=== PATIENT | male | born 1990 | race Caucasian/White ===

== ENCOUNTER 2017-06-18 20:01 | Emergency (ER) | payer BC, MEDICAID ==
[2017-06-18] MEDS ORDERED: Ketorolac 30 MG/ML SDV IM ONE (20:35)
[2017-06-18] MEDS ORDERED: HYDROmorphone 2 MG/ML SDV IM ONE (20:37)
[2017-06-18] MEDS ORDERED: Acetaminophen/Codeine 300-30 MG Tab PO ONE (21:29)
[2017-06-18] MEDS ORDERED: Cyclobenzaprine 10 MG Tab PO ONE (21:29)
--- NOTE | 2017-06-18 21:43 | EDM.PDOC ---
ED HPI GENERAL MEDICAL PROBLEM - General Chief Complaint: Back Pain or Injury Stated Complaint: BACK PAIN Time Seen by Provider: 06/18/17 20:05 Source of Information: Reports: Patient History Limitations: Reports: No Limitations - History of Present Illness INITIAL COMMENTS - FREE TEXT/NARRATIVE: Developed right lower back pain after lifting a couch with a friend. No twisting movements. Injured back within last year but no residual sequlae. Onset: Today Onset Date: 06/18/17 Onset Time: 19:00 Duration: Hour(s): Location: Reports: Back Quality: Reports: Sharp Severity: Moderate Improves with: Reports: Rest Worsens with: Reports: Movement Associated Symptoms: Reports: No Other Symptoms lower back radiating to the Rt leg Pain Score (Numeric/FACES): 9 - Related Data Allergies Allergy/AdvReac Type Severity Reaction Status Date / Time No Known Allergies Allergy Verified 06/18/17 20:11 Home Meds: Home Meds NK [No Known Home Meds] 06/18/17 [History] Past Medical History Other Cardiovascular History: increased heart rate Musculoskeletal History: Reports: Back Pain, Chronic Psychiatric History: Reports: Anxiety, Depression Social & Family History - Family History Family Medical History: Unobtainable - Tobacco Use Smoking Status *Q: Current Every Day Smoker Years of Tobacco use: 7 Packs/Tins Daily: 0.5 - Caffeine Use Caffeine Use: Reports: Coffee, Energy Drinks - Recreational Drug Use Recreational Drug Type: Reports: Marijuana/Hashish Recreational Drug Use Frequency: Not Used In Over 1 Year ED ROS GENERAL - Review of Systems Review Of Systems: ROS reveals no pertinent complaints other than HPI. ED EXAM,LOWER BACK PAIN/INJURY - Physical Exam Exam: See Below Exam Limited By: No Limitations General Appearance: No Apparent Distress Respiratory/Chest: No Respiratory Distress, Lungs Clear Cardiovascular: Normal Peripheral Pulses, Regular Rate, Rhythm, No Edema GI/Abdominal: Normal Bowel Sounds Extremities: Normal Inspection, Normal Range of Motion, Non-Tender (No point tenderness. No saddle anesthesia.) Neurological: Alert, Normal Mood/Affect Skin Exam: Warm, Dry Course - Vital Signs Last Recorded V/S: Last Vital Signs Temp 36.8 C 06/18/17 21:40 Pulse 78 06/18/17 21:40 Resp 17 06/18/17 21:40 BP 118/60 06/18/17 21:40 Pulse Ox 99 06/18/17 21:40 - Orders/Labs/Meds Meds: Medications Discontinued Medications Generic Name Dose Route Start Last Admin Trade Name Abdon PRN Reason Stop Dose Admin Hydromorphone HCl 1 mg 06/18/17 20:37 06/18/17 20:44 Dilaudid IM 06/18/17 20:38 1 mg ONETIME ONE Administration Ketorolac Tromethamine 30 mg 06/18/17 20:35 06/18/17 20:48 Toradol IM 06/18/17 20:36 30 mg ONETIME ONE Administration Departure - Departure Time of Disposition: 20:00 Disposition: Home, Self-Care 01 Condition: Good Clinical Impression: Low back strain Qualifiers: Encounter type: initial encounter Qualified Code(s): S39.012A - Strain of muscle, fascia and tendon of lower back, initial encounter - Discharge Information Instructions: Back Exercises, Back Pain, Adult, [id number] Referrals: PCP,None [Primary Care Provider] - Forms: ED Department Discharge Care Plan Goals: Alternating ice and heat to low back. Continue with normal movements and stretching exercises but avoid heavy lifting, pushing, or pulling. Follow up with primary provider on Wednesday. Take tylenol#3 and flexeril as directed.
== END 2017-06-18 21:40 | disposition home or self-care (01) ==
LOC: FB.ED 20:01
DX: S39.012A Strain of muscle, fascia and tendon of lower back, initial encounter (principal); F17.210 Nicotine dependence, cigarettes, uncomplicated; X50.0XXA Overexertion from strenuous movement or load, initial encounter
CPT/HCPCS: 96372; 99283; J1170; J1885; A9270-GY

== ENCOUNTER 2017-09-24 05:53 | Emergency (ER) | payer BC, MEDICAID ==
[2017-09-24] MEDS ORDERED: Acetaminophen/Codeine 300-30 MG Tab PO ONE (06:28)
--- NOTE | 2017-09-24 09:11 | ER ---
DATE SEEN: 09/24/2017 TIME SEEN: I saw him at 0630 hours, in the morning. CHIEF COMPLAINT: Tooth pain. HISTORY OF PRESENT ILLNESS: This is a 27-year-old male with tooth pain for about 3 to 4 days. The pain is severe to the point that he is unable to sleep, eat or drink, in the upper incisor. REVIEW OF SYSTEMS: Negative for any fever, sore throat, or headaches. ALLERGIES: Penicillin causes anaphylaxis. PHYSICAL EXAMINATION: GENERAL: He is not in distress. VITAL SIGNS: His blood pressure is normal. He is afebrile. HEENT: Oral exam confirmed a cavity in the right upper incisor. IMPRESSION: Dental caries and dental pain. PLAN: 1. Clindamycin 300 mg p.o. t.i.d. 2. Tylenol No.3 one tablet every 6 hours p.r.n. for pain. 3. I advised him to make an appointment with a dentist as soon as practical to discuss further treatment. /[id number] THERESA/NASH
== END 2017-09-24 07:31 | disposition home or self-care (01) ==
LOC: FB.ED 05:53
DX: K02.9 Dental caries, unspecified (principal); Z88.0 Allergy status to penicillin
CPT/HCPCS: 99282; A9270

== ENCOUNTER 2018-02-05 13:37 | Emergency (ER) | payer BC, MEDICAID ==
[2018-02-05] MEDS ORDERED: Cyclobenzaprine 10 MG Tab PO ONE (14:14)
[2018-02-05] MEDS ORDERED: Ketorolac 60 MG/2 ML SDV IM ONE (14:14)
--- NOTE | 2018-02-05 14:21 | EDM.PDOC ---
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 Pain is localized to the R lower back at the L4-5 level, with some radiation into the posterior R leg, but not below the knee. There is moderated spasm with efforts at movement. There is no numbness or weakness in the RLE. He has tried no meds. He had a WC injury earlier this year with similar sxs. Lower back pain Pain Score (Numeric/FACES): 6 - Related Data Allergies Allergy/AdvReac Type Severity Reaction Status Date / Time Penicillins Allergy Other Verified 02/05/18 13:49 Home Meds: Home Meds Cyclobenzaprine [Flexeril] 10 mg PO TID PRN #20 tab 02/05/18 [Rx] Past Medical History Other Cardiovascular History: increased heart rate Musculoskeletal History: Reports: Back Pain, Chronic, Other (See Below) Other Musculoskeletal History: States several fractures: Fingers, Wrist, Elbow , Shoulder, Collar Bone, Knee, Ankle. Hx back problems from work injury 2017. Neurological History: Reports: Migraines Psychiatric History: Reports: Anxiety, Depression, Suicide Attempt Endocrine/Metabolic History: Reports: Obesity/BMI 30+ - Infectious Disease History Infectious Disease History: Reports: Chicken Pox - Past Surgical History HEENT Surgical History: Reports: Myringotomy w Tube(s) Social & Family History - Family History Family Medical History: Noncontributory - Tobacco Use Smoking Status *Q: Current Every Day Smoker Years of Tobacco use: 14 Packs/Tins Daily: 1.5 - Caffeine Use Caffeine Use: Reports: Coffee, Energy Drinks, Tea - Alcohol Use Days Per Week of Alcohol Use: 3 Number of Drinks Per Day: 6 Total Drinks Per Week: 18 - Recreational Drug Use Recreational Drug Use: Yes Drug Use in Last 12 Months: No Recreational Drug Type: Reports: Cocaine, Marijuana/Hashish ED ROS GENERAL - Review of Systems Review Of Systems: ROS reveals no pertinent complaints other than HPI. ED EXAM,LOWER BACK PAIN/INJURY - Physical Exam Exam: See Below Exam Limited By: No Limitations General Appearance: Alert, WD/WN, Anxious, Mild Distress Head: Normocephalic Neck: Normal Inspection, Supple, Non-Tender, Full Range of Motion Respiratory/Chest: Lungs Clear, Normal Breath Sounds Cardiovascular: Regular Rate, Rhythm, No Murmur GI/Abdominal: Normal Bowel Sounds, Soft, Non-Tender, No Organomegaly, No Distention, No Mass (Male) Exam: No Hernia Rectal (Males) Exam: Deferred Back Exam: Decreased Range of Motion (SFB 15 deg, lat and rotarty bend are sxs limited; SSLR is full, ) Extremities: Normal Inspection, Non-Tender, No Pedal Edema Neurological: Alert, Normal Dorsiflexion, CN II-XII Intact, Normal Plantar Flexion, Normal Reflexes, No Motor/Sensory Deficits, Oriented x 3 Psychiatric: Normal Affect, Anxious Skin Exam: Warm, Dry, Intact Lymphatic: No Adenopathy Course - Vital Signs Text/Narrative:: Following assessment at the [facility] ED, I administered Toradol 60 mg IM and Flexeril 10 mg po for sxs relief. Patient tolerated well. Last Recorded V/S: Last Vital Signs Temp 36.7 C 02/05/18 13:45 Pulse 82 02/05/18 13:45 Resp 18 02/05/18 13:45 BP 136/78 02/05/18 13:45 Pulse Ox 99 02/05/18 13:45 - Orders/Labs/Meds Meds: Medications Discontinued Medications Generic Name Dose Route Start Last Admin Trade Name Freq PRN Reason Stop Dose Admin Cyclobenzaprine HCl 10 mg 02/05/18 14:14 Flexeril PO 02/05/18 14:15 ONETIME ONE Ketorolac Tromethamine 60 mg 02/05/18 14:14 Toradol IM 02/05/18 14:15 ONETIME ONE Departure - Departure Time of Disposition: 14:30 Disposition: Home, Self-Care 01 Condition: Fair Clinical Impression: Low back strain Qualifiers: Encounter type: initial encounter Qualified Code(s): S39.012A - Strain of muscle, fascia and tendon of lower back, initial encounter - Discharge Information *PRESCRIPTION DRUG MONITORING PROGRAM REVIEWED*: Not Applicable *COPY OF PRESCRIPTION DRUG MONITORING REPORT IN PATIENT RADHA: Not Applicable Prescriptions: Cyclobenzaprine [Flexeril] 10 mg PO TID PRN #20 tab PRN Reason: Breakthrough Pain Referrals: PCP,None [Primary Care Provider] - - Problem List & Annotations (1) Low back strain SNOMED Code(s): 028242984 Code(s): S39.012A - STRAIN OF MUSCLE, FASCIA AND TENDON OF LOWER BACK, INIT Status: Acute Annotation/Comment:: I dispensed Flexeril 10 mg tab taken 1/2 to 1 tab tid prn for back spasms, consider NSAIDs for pain, heat and rest. A note for medical leave from work today was provided. Qualifiers: Encounter type: initial encounter Qualified Code(s): S39.012A - Strain of muscle, fascia and tendon of lower back, initial encounter - Problem List Review Problem List Initiated/Reviewed/Updated: Yes - Assessment/Plan Plan: Follow up with PCP if needed.
== END 2018-02-05 14:42 | disposition home or self-care (01) ==
LOC: FB.ED 13:37
DX: S39.012A Strain of muscle, fascia and tendon of lower back, initial encounter (principal); F17.210 Nicotine dependence, cigarettes, uncomplicated; Z88.0 Allergy status to penicillin; X50.9XXA Other and unspecified overexertion or strenuous movements or postures, initial encounter
CPT/HCPCS: 96372; 99283; A9270; J1885

== ENCOUNTER 2018-02-15 05:53 | Emergency (ER) | payer OTHER ==
[2018-02-15] MEDS ORDERED: Cyclobenzaprine 10 MG Tab PO ONE (06:17)
[2018-02-15] MEDS ORDERED: Ketorolac 60 MG/2 ML SDV IM ONE (06:17)
--- NOTE | 2018-02-15 06:17 | EDM.PDOC ---
ED HPI GENERAL MEDICAL PROBLEM - General Chief Complaint: Back Pain or Injury Stated Complaint: BACK PAIN Time Seen by Provider: 02/15/18 06:09 Source of Information: Reports: Patient, Old Records History Limitations: Reports: No Limitations - History of Present Illness INITIAL COMMENTS - FREE TEXT/NARRATIVE: Brando returns to [facility] ED with an exacerbation of low back pain. 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 There was some radiation of pain into the R leg, without numbness or weakness. His supply of Flexeril is gone. He has not seen a PCP since last ED visit of 02/05/18 for similar sxs. - Related Data Allergies Allergy/AdvReac Type Severity Reaction Status Date / Time Penicillins Allergy Other Verified 02/15/18 06:12 Home Meds: Home Meds Cyclobenzaprine [Flexeril] 10 mg PO TID #20 tab 02/15/18 [Rx] Past Medical History Other Cardiovascular History: increased heart rate Musculoskeletal History: Reports: Back Pain, Chronic, Other (See Below) Other Musculoskeletal History: States several fractures: Fingers, Wrist, Elbow , Shoulder, Collar Bone, Knee, Ankle. Hx back problems from work injury 2017. Neurological History: Reports: Migraines Psychiatric History: Reports: Anxiety, Depression, Suicide Attempt Endocrine/Metabolic History: Reports: Obesity/BMI 30+ - Infectious Disease History Infectious Disease History: Reports: Chicken Pox - Past Surgical History HEENT Surgical History: Reports: Myringotomy w Tube(s) Social & Family History - Family History Family Medical History: Noncontributory - Caffeine Use Caffeine Use: Reports: Coffee, Energy Drinks, Tea ED ROS GENERAL - Review of Systems Review Of Systems: ROS reveals no pertinent complaints other than HPI. ED EXAM,LOWER BACK PAIN/INJURY - Physical Exam Exam: See Below Exam Limited By: No Limitations General Appearance: Alert, WD/WN, Mild Distress Head: Normocephalic Neck: Normal Inspection, Supple, Non-Tender, Full Range of Motion Respiratory/Chest: Lungs Clear, Normal Breath Sounds, Chest Non-Tender Cardiovascular: Regular Rate, Rhythm, No Murmur Back Exam: Decreased Range of Motion, Muscle Spasm (Right), Paraspinal Tenderness (Right), Vertebral Tenderness (L2-5) Extremities: Normal Inspection, Normal Range of Motion, Non-Tender, No Pedal Edema, Normal Capillary Refill Neurological: Alert, Normal Mood/Affect, Normal Dorsiflexion, CN II-XII Intact, Normal Reflexes, No Motor/Sensory Deficits, Oriented x 3 Psychiatric: Normal Affect, Normal Mood Skin Exam: Warm, Dry, Intact, Normal Color, No Rash Lymphatic: No Adenopathy Course - Vital Signs Text/Narrative:: I administered Toradol 60 mg IM and Flexeril 10 mg po prior to discharge. Last Recorded V/S: Last Vital Signs Temp 36.5 C 02/15/18 06:00 Pulse 86 02/15/18 07:10 Resp 16 02/15/18 07:10 BP 133/88 02/15/18 07:10 Pulse Ox 100 02/15/18 07:10 - Orders/Labs/Meds Meds: Medications Discontinued Medications Generic Name Dose Route Start Last Admin Trade Name Freq PRN Reason Stop Dose Admin Cyclobenzaprine HCl 10 mg 02/15/18 06:17 02/15/18 06:25 Flexeril PO 02/15/18 06:18 10 mg ONETIME ONE Administration Ketorolac Tromethamine 60 mg 02/15/18 06:17 02/15/18 06:25 Toradol IM 02/15/18 06:18 60 mg ONETIME ONE Administration Departure - Departure Time of Disposition: 06:55 Disposition: Home, Self-Care 01 Condition: Fair Clinical Impression: Low back strain Qualifiers: Encounter type: initial encounter Qualified Code(s): S39.012A - Strain of muscle, fascia and tendon of lower back, initial encounter - Discharge Information *PRESCRIPTION DRUG MONITORING PROGRAM REVIEWED*: Not Applicable *COPY OF PRESCRIPTION DRUG MONITORING REPORT IN PATIENT RADHA: Not Applicable Prescriptions: Cyclobenzaprine [Flexeril] 10 mg PO TID #20 tab Instructions: Back Pain, Adult, [id number] Referrals: PCP,None [Primary Care Provider] - Forms: ED Department Discharge - Problem List & Annotations (1) Low back strain SNOMED Code(s): 818784768 Code(s): S39.012A - STRAIN OF MUSCLE, FASCIA AND TENDON OF LOWER BACK, INIT Status: Acute Annotation/Comment:: I dispensed Flexeril 10 mg tab taken 1/2 to 1 tab tid prn for back spasms, consider NSAIDs for pain, heat and rest. A note for medical leave from work today was provided. Qualifiers: Encounter type: initial encounter Qualified Code(s): S39.012A - Strain of muscle, fascia and tendon of lower back, initial encounter - Problem List Review Problem List Initiated/Reviewed/Updated: Yes - Assessment/Plan Plan: Follow up with PCP for medical clearance.
== END 2018-02-15 07:20 | disposition home or self-care (01) ==
LOC: FB.ED 05:53
DX: S39.012A Strain of muscle, fascia and tendon of lower back, initial encounter (principal); E66.9 Obesity, unspecified; Z88.0 Allergy status to penicillin; X50.9XXA Other and unspecified overexertion or strenuous movements or postures, initial encounter; Y99.0 Civilian activity done for income or pay
CPT/HCPCS: 96372; 99000; 99283; A9270; J1885

== ENCOUNTER 2018-08-06 22:56 | Emergency (ER) | payer BC, OTHER ==
[2018-08-07] MEDS ORDERED: Ketorolac 60 MG/2 ML SDV IM ONE (00:06)
--- NOTE | 2018-08-08 14:55 | CR ---
INDICATION: Right shoulder pain, heard a pop while working with a pipe. RIGHT SHOULDER: Three views of the right shoulder were obtained and revealed no evidence of a fracture, dislocation, or other significant bone or joint abnormality. BEN
== END 2018-08-07 01:25 | disposition home or self-care (01) ==
LOC: FB.ED 22:56
DX: S43.001A Unspecified subluxation of right shoulder joint, initial encounter (principal); X50.9XXA Other and unspecified overexertion or strenuous movements or postures, initial encounter
CPT/HCPCS: 73030; 96372; 99000; 99283; J1885

== ENCOUNTER 2018-08-16 12:39 | Emergency (ER) | payer OTHER ==
--- NOTE | 2018-08-16 14:15 | EDM.PDOC ---
ED HPI GENERAL MEDICAL PROBLEM - General Chief Complaint: Upper Extremity Injury/Pain Stated Complaint: SHOULDER PAIN Time Seen by Provider: 08/16/18 12:39 Source of Information: Reports: Patient, Family History Limitations: Reports: No Limitations - History of Present Illness INITIAL COMMENTS - FREE TEXT/NARRATIVE: 28 y.o.w.m came to the ed due to right shoulder pain. Pt injured his right shoulder on 08/06/2018 at work, X Ray was neg right should. An MRI was ordered by Dr. Lee, which showed minor injuries only. as per Dr. Lee. Pt was on light duty at work, when he suddenly had a gain a shooting pain in his right arm and elbow with swelling of hand, arm abd elbow. There was no new trauma. Pt is only able to abduct his right shoulder about 20 degree, he can not elevate his right elbow above the horizontal line.No N/V/D no SOB or chest pain or any other acute medical issues. BP 120/66 RR 18 Pulse ox 99 Temp 36.6 Pule 75 Onset: Unknown/Unsure Onset Date: 08/06/18 Onset Time: 06:00 Duration: Chronic, Intermittent Location: Reports: Upper Extremity, Right (shoulder ) Quality: Reports: Ache, Burning, Dull, Pressure, Throbbing Severity: Moderate Improves with: Reports: Rest Worsens with: Reports: Movement Context: Reports: Trauma (on 08/06/2018) Associated Symptoms: Reports: Other (swelling of right arm) Treatments OILER AND GREASER: Reports: NSAIDS R shoulder Pain Score (Numeric/FACES): 9 - Related Data Allergies Allergy/AdvReac Type Severity Reaction Status Date / Time Penicillins Allergy Other Verified 08/16/18 13:48 Home Meds: Home Meds Acetaminophen/HYDROcodone [[place] 325-5 MG] 1 tab PO Q4H PRN #12 tablet 08/16/18 [Rx] Past Medical History Other Cardiovascular History: increased heart rate Musculoskeletal History: Reports: Back Pain, Chronic, Other (See Below) Other Musculoskeletal History: States several fractures: Fingers, Wrist, Elbow , Shoulder, Collar Bone, Knee, Ankle. Hx back problems from work injury 2017. Neurological History: Reports: Migraines Psychiatric History: Reports: Anxiety, Depression, Suicide Attempt Endocrine/Metabolic History: Reports: Obesity/BMI 30+ - Infectious Disease History Infectious Disease History: Reports: Chicken Pox - Past Surgical History Head Surgeries/Procedures: Reports: None HEENT Surgical History: Reports: Myringotomy w Tube(s) Social & Family History - Family History Family Medical History: Noncontributory - Tobacco Use Smoking Status *Q: Current Every Day Smoker Years of Tobacco use: 16 Packs/Tins Daily: 0.5 - Caffeine Use Caffeine Use: Reports: Coffee, Energy Drinks - Recreational Drug Use Recreational Drug Use: No Review of Systems - Review of Systems Review Of Systems: See Below Constitutional: Reports: No Symptoms Eyes: Reports: No Symptoms Ears: Reports: No Symptoms Nose: Reports: No Symptoms Mouth/Throat: Reports: No Symptoms Respiratory: Reports: No Symptoms Cardiovascular: Reports: No Symptoms GI/Abdominal: Reports: No Symptoms Genitourinary: Reports: No Symptoms Musculoskeletal: Reports: Shoulder Pain (right side) Skin: Reports: No Symptoms Neurological: Reports: No Symptoms Psychiatric: Reports: No Symptoms ED EXAM, GENERAL - Physical Exam Exam: See Below Exam Limited By: Physical Impairment (right shoulder pain and swelling) General Appearance: Alert, WD/WN, Moderate Distress Eye Exam: Bilateral Eye: Normal Inspection Ears: Normal External Exam Ear Exam: Bilateral Ear: Auricle Normal Nose: Normal Inspection, Normal Mucosa Throat/Mouth: Normal Inspection, Normal Lips, Normal Teeth, Normal Gums, Normal Voice, No Airway Compromise Head: Atraumatic, Normocephalic Neck: Normal Inspection, Supple, Non-Tender, Full Range of Motion Respiratory/Chest: No Respiratory Distress, Lungs Clear, Normal Breath Sounds, Chest Non-Tender Cardiovascular: Normal Peripheral Pulses, Regular Rate, Rhythm, No Edema, No Gallop, No Murmur, No Rub Peripheral Pulses: 1+: Brachial (R) GI/Abdominal: Normal Bowel Sounds, Soft, Non-Tender, No Organomegaly (Male) Exam: Deferred Rectal (Males) Exam: Deferred Back Exam: Normal Inspection, Full Range of Motion Extremities: Limited Range of Motion (right shoulkder due to pain and swelling) Neurological: Alert, Oriented, CN II-XII Intact, Normal Cognition, Normal Gait Psychiatric: Normal Affect, Normal Mood Skin Exam: Warm, Dry, Intact, Normal Color, No Rash Lymphatic: No Adenopathy Course - Vital Signs Text/Narrative:: 28 y.o.w.m came to the ed due to right shoulder pain. Pt injured his right shoulder on 08/06/2018 at work, X Ray was neg right should. An MRI was ordered by Dr. Lee, which showed minor injuries only. as per Dr. Lee. Pt was on light duty at work, when he suddenly had a gain a shooting pain in his right arm and elbow with swelling of hand, arm abd elbow. There was no new trauma. Pt is only able to abduct his right shoulder about 20 degree, he can not elevate his right elbow above the horizontal line.No N/V/D no SOB or chest pain or any other acute medical issues. BP 120/66 RR 18 Pulse ox 99 Temp 36.6 Pule 75 PE: WNWD W M with right shoulder pain, worse with movement Imaging: MRI right shoulder: Small Parietal delamination tear distal muscle tendinous junction supraspinatus subtle finding Labs: Not indicated Impression: R shoulder pain, swelling of shoulder and right upper extremity Tx: Toradol, Dexamethasone, ICE Reexam: some improvement 2/10 pm Consultation: Dr. Lee, Orth: No orthopedic issue, Decadron, prednisone. Plan: D/C with instructions Last Recorded V/S: Last Vital Signs Temp 36.6 C 08/16/18 13:40 Pulse 55 L 08/16/18 16:00 Resp 18 08/16/18 16:00 BP 138/62 08/16/18 16:00 Pulse Ox 99 08/16/18 16:00 - Orders/Labs/Meds Meds: Medications Discontinued Medications Generic Name Dose Route Start Last Admin Trade Name Freq PRN Reason Stop Dose Admin Dexamethasone 10 mg 08/16/18 14:21 08/16/18 14:59 Dexamethasone IM 08/16/18 14:22 10 mg ONETIME STA Administration Ketorolac Tromethamine 60 mg 08/16/18 14:18 08/16/18 14:58 Toradol IM 08/16/18 14:19 60 mg ONETIME ONE Administration Departure - Departure Time of Disposition: 15:57 Disposition: Home, Self-Care 01 Condition: Good Clinical Impression: Swelling of shoulder region Shoulder pain, right Qualifiers: Chronicity: acute Qualified Code(s): M25.511 - Pain in right shoulder - Discharge Information Prescriptions: Acetaminophen/HYDROcodone [[place] 325-5 MG] 1 tab PO Q4H PRN #12 tablet PRN Reason: for severe pain only Instructions: Ketorolac injection, Shoulder Pain, [id number], Dexamethasone injection Referrals: PCP,None [Primary Care Provider] - Forms: ED Department Discharge, ED Return to Work/School Form Additional Instructions: Please take the prednisone taper as recommended, Motrin 600 mg wit food every 6- 8 hours for moderate pain. [place] for severe pain.Please follow up with regular MD, come back if your symptoms get worse acutely.
[2018-08-16] MEDS ORDERED: Ketorolac 60 MG/2 ML SDV IM ONE (14:18)
[2018-08-16] MEDS ORDERED: Dexamethasone 4 MG/ML SDV IM STA (14:21)
== END 2018-08-16 16:00 | disposition home or self-care (01) ==
LOC: FB.ED 12:39
DX: M25.411 Effusion, right shoulder (principal); M25.511 Pain in right shoulder; F17.210 Nicotine dependence, cigarettes, uncomplicated; Z88.0 Allergy status to penicillin
CPT/HCPCS: 96372; 99283; J1100; J1885

== ENCOUNTER 2018-10-11 11:50 | Day surgery (SDC) | payer OTHER ==
[2018-10-11] MEDS ORDERED: Ketorolac 30 MG/ML SDV IVPUSH ONE (11:51)
[2018-10-11] MEDS ORDERED: Ondansetron 4 MG/2 ML SDV IVPUSH ONE (11:51)
[2018-10-11] MEDS ORDERED: Rocuronium 100 MG/10 ML MDV IV ONE (11:51)
[2018-10-11] MEDS ORDERED: Propofol 200 MG/20 ML SDV IV ONE (11:51)
[2018-10-11] MEDS ORDERED: fentaNYL 100 MCG/2 ML SDV IV ONE (11:51)
[2018-10-11] MEDS ORDERED: Midazolam 1 MG/ML 2 ML SDV IV ONE (11:51)
[2018-10-11] MEDS ORDERED: Ropivacaine 0.5% 5 MG/ML 30 ML SDV INJECT ONE (11:51)
[2018-10-11] MEDS ORDERED: Lactated Ringers 1,000 ML IV ONE (11:51)
[2018-10-11] MEDS ORDERED: Clindamycin in 0.9 % Sod Chlor 900 MG/50 ML BAG IV ONE (12:00)
[2018-10-11] MEDS ORDERED: Lactated Ringers 1,000 ML IV SCH (12:00)
[2018-10-11] MEDS ORDERED: Sodium Chloride 0.9% 10 ML Syringe FLUSH PRN (12:00)
[2018-10-11] MEDS ORDERED: Bupivacaine 0.5%/EPINEPHrine 1:200,000 50 ML MDV INJECT ONE (14:11)
--- NOTE | 2018-10-11 14:26 | PCM.SN ---
- Free Text/Narrative Note: ANESTHESIA ACUTE PAIN SERVICE Date: 10/11/2018 Time: 1234 to 1250 Preprocedure: Right Shoulder Pain and Rotator Cuff Tear Postprocedure: Right Shoulder Arthroscopy with Open Rotator Cuff Repair The surgeon and this patient both requested Postoperative Pain Control via Regional Anesthesia. Procedure: Right Interscalene Nerve Block with Ultrasound Guidance / Nerve Stimulation. Risks and the benefits were discussed with the patient including chronic neck pain and block failure or incompleteness. All questions were answered and a consent was obtained. Monitors: SpO2, heart rate, and NIBP [please see nursing notes for vitals]. Sedation: Versed 2mg's and Fentanyl 100 mcg's IV The patient remained awake and orientated throughout the procedure. A Time Out was completed prior to the start of the block. A preprocedure ultrasound [U/S] scan was done locating the right Subclavian Artery and Brachial Plexus with moving the probe up long the neck visualizing the Brachial Plexus chain. The area was prepped with a Chlora-Prep swab and allowed to dry. I then infiltrated the insertion site with 1 ml of 1% Lidocaine plain using a 27 Ga needle. Using Aseptic technique, I then advanced a 22 Ga 2 inch Stimuplex Ultra 360 Insulated Echogenic Needle under direct U/S visualization to the proper position. Also, I used a nerve stimulator until the right biceps and forearm twitched at .44 Carol-amps. The stimulation stopped with 1 ml of normal saline injected through the needle. Frequent aspiration was done during the needle placement. After a negative aspiration of the needle for blood, a total of 20 ml's of .5% Naropin was slowly injected under direct U/S visualization in divided doses with negative aspiration for blood. It injected easily and the patient had no complaints or local toxicity sx's. No procedural complications were noted. Documentation: Please see pre and postprocedural pictures in PAC System [ Radiology]. Thank you for allowing us to provide this service. LYNNETTE Molina CRNA
--- NOTE | 2018-10-11 17:48 | OR ---
DATE OF OPERATION: 10/11/2018 SURGEON: Deonte Lee DO PREOPERATIVE DIAGNOSES: 1. Right shoulder rotator cuff tear. 2. Right shoulder impingement. POSTOPERATIVE DIAGNOSES: 1. Right shoulder rotator cuff tear. 2. Right shoulder impingement. PROCEDURES: 1. Right shoulder arthroscopy with subacromial decompression. 2. Partial synovectomy, right shoulder. 3. Mini open rotator cuff repair. VEGETABLE LOADER: Juanis Castillo NP. Nurse practitioner, Juanis Castillo NP, played an essential role in assisting in this case, helping to position the patient, retract structures as needed, as well as suturing and cutting sutures as indicated. Her presence improved patient's safety and decreased operative time. ANESTHESIA: General endotracheal intubation plus interscalene block. FLUID: Lactated Ringer's solution. ESTIMATED BLOOD LOSS: Less than 25 mL. COMPLICATIONS: None. SPECIMEN: None. DISCHARGE DISPOSITION: Stable to PACU. INDICATIONS FOR THE PROCEDURE: The patient was seen preoperatively in the clinic. He had injured himself at work. We tried various nonoperative treatments. He did not improve. MRI confirmed the above-mentioned diagnosis. Risks and benefits of the procedure were explained to the patient. Informed consent was obtained. DESCRIPTION OF PROCEDURE: The patient was seen preoperatively by myself and the Anesthesia staff in the preoperative holding area, where the operative site was marked. He was brought to the operative suite by Anesthesia staff, where general anesthesia was administered. He was then placed into the beach-chair positioner. All extremities were found to be well padded. The neck was slightly flexed. SCDs were placed. The right upper extremity was then prepped and draped in a sterile manner. Time-out was called identifying the correct patient, the correct procedure, the correct site, and that the antibiotics had been begun within the appropriate period of time. Arthroscopy was then started on the patient through a posterior portal into the glenohumeral joint. There was a little bit of fraying, but the biceps tendon looked to be in good repair as well as the glenoid labrum. There was an undersurface tear of the rotator cuff, which coincided with the MRI findings. This was debrided slightly with a shaver and ablation. Partial synovectomy was also performed. We then removed the trocar and then went into the subacromial space. There was significant bursitis present. I then opened the lateral portal at the anterior edge of the acromion and then used a shaver to perform a partial bursectomy and then used ablation unit to delineate the acromion as well as take care of some minor bleeding. We then used a bur to perform a subacromial decompression. After that was finished, we then irrigated the joint and then removed our instruments from the joint. We then performed a mini open rotator cuff repair by using an incision approximately 1 cm lateral to the acromion and extending about 5 cm. Bleeding was controlled with Bovie electrocautery. I then was able to visualize the deltoid and then the raphae between the anterior and medial bellies of the deltoid. I then went through the raphae and then identified the bursa. I then used Gelpis for retraction as well as retractors. I then removed the bursa and then was able to palpate what corresponded with a partial tear of the supraspinatus tendon. I then went down just distal to the insertion of the rotator cuff and used a cautery unit to ablate this. I then placed an anchor with sutures and then placed those 4 sutures through the rotator cuff. I tied 2 of them together and then crossed 2 of them back to a distal anchor, which I placed, and then tightened that. With compression, this tightened up the rotator cuff very nicely. We then cut those sutures and then copiously irrigated with Betadine-infused irrigation and then closed the deltoid interval with #1 STRATAFIX in a watertight manner continuously and then irrigated again and then closed the subcutaneous layer with #1 STRATAFIX. We then closed with small amount of 3-0 nylon and closed the portals with 3-0 nylon. We then placed Betadine-infused irrigation and then placed a sterile dressing. The patient was then transferred to his hospital bed and allowed to awaken from general anesthesia. /[id number] BIANCA/NASH
== END 2018-10-11 18:10 | disposition home or self-care (01) ==
LOC: FB.SDS 11:50 → FB.MS 15:46 → FB.SDS 18:10
PROVIDERS: ATTEND Orthopaedic Surgery
DX: S46.011A Strain of muscle(s) and tendon(s) of the rotator cuff of right shoulder, initial encounter (principal); M75.41 Impingement syndrome of right shoulder; F17.210 Nicotine dependence, cigarettes, uncomplicated; X50.9XXA Other and unspecified overexertion or strenuous movements or postures, initial encounter; Y99.0 Civilian activity done for income or pay; Z88.0 Allergy status to penicillin; Z91.018 Allergy to other foods; Z91.030 Bee allergy status; Z79.1 Long term (current) use of non-steroidal anti-inflammatories (NSAID)
CPT/HCPCS: J1885; J2001; J2250; J2405; J2704; J2795; J3010; J3490; J7120

== ENCOUNTER 2019-03-30 06:48 | Emergency (ER) | payer OTHER ==
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
[2019-03-30] MEDS ORDERED: Acetaminophen/HYDROcodone 325-5 MG Tab PO ONE (09:28)
[2019-03-30] MEDS ORDERED: Ketorolac 60 MG/2 ML SDV IM ONE (09:42)
--- NOTE | 2019-03-30 11:52 | CR ---
INDICATION: Contusion to lower extremity. LEFT ANKLE: Three views of the left ankle revealed soft tissue swelling overlying the lateral malleolus. The ankle mortise appeared to be intact without evidence of a fracture, dislocation, or other definite bone or joint abnormality. If symptoms persist - if occult fracture site is suspected clinically, re- examination in 10-14 days may be helpful. Report was called to Dr. Fenton on 03/30/19. [facility]
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
== END 2019-03-30 11:41 | disposition home or self-care (01) ==
LOC: FB.ED 06:48
DX: S93.602A Unspecified sprain of left foot, initial encounter (principal); E66.9 Obesity, unspecified; Z91.030 Bee allergy status; Z88.0 Allergy status to penicillin; Z91.048 Other nonmedicinal substance allergy status; Z68.30 Body mass index [BMI] 30.0-30.9, adult; W23.0XXA Caught, crushed, jammed, or pinched between moving objects, initial encounter; Y92.89 Other specified places as the place of occurrence of the external cause; Y99.0 Civilian activity done for income or pay
CPT/HCPCS: 73610-LT; 73630-LT; 96372; 99000; 99284-25; A9270-GY; J1885